=== PATIENT | female | born 1970 | race Caucasian/White ===

== ENCOUNTER → 2017-02-15 | Outpatient (CLI) | payer BC ==
--- NOTE | ~2017-02-15 | MY11 ---
[facility] A Service of [facility] RADIOLOGY TEXT RESULTS PATIENT: RAY MONTES DE OCA LOCATION: [facility] : 74 UNIT #: [id number] AGE: [address]: TABBY COWART MD SEX: F ORDER DR: [id number] [facility] [address] [place], [place] [address] [id number] O MR#: [id number] Acc #: [id number] NAME: RAY MONTES DE OCA : 1970 SEX: F STUDY DATE/TIME: 02/15/2017 14:00 UNIT: [facility] ROOM: STUDY DESCRIPTION: MY Mammogram Screening Dig Jarred Attending Physician: Tabby Cowart Referring Physician: Tabby Cowart Ordering Physician: Physician Non-Staff Primary Care Physician: Kendra Desir M.D. MEDICAL IMAGING REPORT This report is preliminary unless electronic signature is present EXAM Digital screening mammogram 02/15/2017 HISTORY 46-year-old woman no risk elevation. Annual screen. COMPARISON Outside mammograms date 08/23/2014 with followup diagnostic left breast imaging 09/16/2014. FINDINGS Digital imaging of each breast was completed utilizing a two-view examination of each breast in craniocaudal and mediolateral-oblique projections. Review and interpretation of digital mammograms include a second review in conjunction with FDA-approved CAD device. There is a normal parenchymal presentation bilaterally consistent with the patient's age. There are no breast masses imaged and no parenchymal asymmetry is visualized. There are no suspicious microcalcifications and I see no focal architectural disturbance. IMPRESSION Negative screening digital mammogram. One-year followup recommended. Patients over the age of 40 are entered into a reminder system with target due date for the next mammogram. A result letter will also be sent to the patient. BIRADS: 1 Negative Dictated by... Ez Crespo M.D. [facility] A Service of [facility] & [facility] RADIOLOGY TEXT RESULTS PATIENT: RAY MONTES DE OCA LOCATION: [facility] : 74 UNIT #: [id number] AGE: [address]: TABBY COWART MD SEX: F ORDER DR: THIS IS AN ELECTRONICALLY VERIFIED REPORT Ez Crespo M.D. at 02/17/2017 2:32 PM PATRICIA/giuliano TD: 02/17/2017 12:34 JOB #: [id number] MEDICAL IMAGING REPORT Page 1 of 1 COPY
== END | disposition home or self-care (01) ==
LOC: CWCC 13:51
DX: Z12.31 Encounter for screening mammogram for malignant neoplasm of breast (principal)
CPT/HCPCS: G0202

== ENCOUNTER → 2017-05-18 | Outpatient (CLI) | payer BC ==
--- NOTE | ~2017-05-18 | US85 ---
[facility] A Service of [facility] & [facility] RADIOLOGY TEXT RESULTS PATIENT: RAY MONTES DE OCA LOCATION: [facility] : 74 UNIT #: [id number] AGE: [address]: Jarod Dumas MD SEX: F ORDER DR: [id number] [facility] [address] [place], [place] [address] [id number] O MR#: [id number] Acc #: [id number] NAME: RAY MONTES DE OCA : 1970 SEX: F STUDY DATE/TIME: 05/18/2017 17:13 UNIT: [facility] ROOM: STUDY DESCRIPTION: [facility] Stdy Attending Physician: Jarod Dumas M.D. Referring Physician: Jarod Dumas M.D. Ordering Physician: Yamileth Dumas M.D. Primary Care Physician: Kendra Desir M.D. MEDICAL IMAGING REPORT This report is preliminary unless electronic signature is present EXAM Left lower extremity venous duplex 05/18/2017. HISTORY Left lower extremity pain for 3 weeks, increasing in the last 3 days. Evaluate for deep vein thrombosis. TECHNIQUE Venous ultrasound examination of the left lower extremity was performed using grayscale, spectral Doppler and color flow Doppler imaging. FINDINGS The examination is negative. There is no evidence of left lower extremity deep venous thrombus from the groin to the lower calf. Visualized greater saphenous vein is also patent. IMPRESSION Negative examination. No evidence of left lower extremity deep venous thrombosis. Dictated by... Den Salmeron M.D. THIS IS AN ELECTRONICALLY VERIFIED REPORT Den Salmeron M.D. at 05/19/2017 10:21 AM KRT/krupa TD: 05/19/2017 07:13 JOB #: [id number] MEDICAL IMAGING REPORT Page 1 of 1 COPY
== END | disposition home or self-care (01) ==
LOC: CGUS 11:08 → CNIV 11:08
DX: M79.661 Pain in right lower leg (principal)
CPT/HCPCS: 93971

== ENCOUNTER → 2017-05-25 | Outpatient (CLI) | payer BC ==
--- NOTE | ~2017-05-25 | MR103 ---
[facility] A Service of [facility] RADIOLOGY TEXT RESULTS PATIENT: RAY MONTES DE OCA LOCATION: [facility] : 74 UNIT #: [id number] AGE: [address]: Jarod Dumas MD SEX: F ORDER DR: [id number] [facility] [address] [place], [place] [address] [id number] O MR#: [id number] Acc #: [id number] NAME: RAY MONTES DE OCA : 1970 SEX: F STUDY DATE/TIME: 05/25/2017 6:55 UNIT: [facility] ROOM: STUDY DESCRIPTION: MR Knee Wo Contrast Lt Attending Physician: Jarod Dumas M.D. Referring Physician: Jarod Dumas M.D. Ordering Physician: Jarod Dumas M.D. Primary Care Physician: Kendra [facility] C[facility] REPORT This report is preliminary unless electronic signature is present. EXAM MRI of the left knee without contrast HISTORY 46-year-old female complains of feeling a pop and knee 1 week ago while walking. Pain started in the knee and now extending into calf. Increasing pain when straightening leg. FINDINGS Multiplanar multiecho imaging was performed of the left knee utilizing a high field magnet and dedicated protocol. Bone structure and alignment appears normal. No focal marrow edema. Joint fluid within normal limits. Medial and lateral menisci appear intact. Articular cartilage unremarkable except for mild chondromalacia patella. The cruciate and collateral ligaments appear normal. The extensor mechanism unremarkable. In particular, there are no findings to suggest a popliteal cyst or recently ruptured popliteal cyst within the knee or proximal lower leg. IMPRESSION Mild chondromalacia patella otherwise unremarkable MRI of the left knee. Dictated by... Fidel Qureshi M.D. THIS IS AN ELECTRONICALLY VERIFIED REPORT Fidel Qureshi M.D. at 05/25/2017 5:11 PM DANITA/jolanta TD: 05/25/2017 15:05 JOB #: [id number] [facility] A Service of [facility] RADIOLOGY TEXT RESULTS PATIENT: RAY MONTES DE OCA LOCATION: [facility] : 74 UNIT #: [id number] AGE: [address]: Jarod Dumas MD SEX: F ORDER DR: MRI CENTER REPORT Page 1 of 1 COPY
--- NOTE | ~2017-05-25 | MR113 ---
[facility] A Service of [facility] RADIOLOGY TEXT RESULTS PATIENT: RAY MONTES DE OCA [facility] 74 UNIT #: [id number] AGE: [address]: Jarod Dumas MD SEX: F ORDER DR: [id number] [place] [id number] [facility]. [place], [place] [address] [id number] O MR#: [id number] Acc #: [id number] NAME: RAY MONTES DE OCA : 1970 SEX: F STUDY DATE/TIME: 05/25/2017 6:19 UNIT: [facility] ROOM: STUDY DESCRIPTION: MR Lumbar Wo Contrast Attending Physician: Jarod Dumas M.D. Referring Physician: Jarod Dumas M.D. Ordering Physician: Jarod Dumas M.D. Primary Care Physician: Kendra Desir M.D. MRI CENTER REPORT This report is preliminary unless electronic signature is present. EXAM Lumbar spine MRI without contrast, 05/25/2017 PROCEDURE Routine lumbar spine MRI without contrast. COMPARISON None CLINICAL HISTORY 1-week history of pain radiating to right hip. FINDINGS Spine alignment is normal. Bone marrow signal is normal. The distal cord and conus are normal in position, but question tiny syrinx cavity in the distal cord. At L1-2 and L2-3, the disc canal and foramina are normal. At 3-4, there is a slight disc bulge but no canal or foraminal stenosis. At 4-5, there is some mild facet arthropathy and perhaps a slight disc bulge but no canal stenosis and there is mild left and borderline right foraminal stenosis. At 5-1, there is a small central disc protrusion but no canal stenosis or other nerve root impingement and mild left and borderline right foraminal narrowing. IMPRESSION Minimal degenerative change. There is mild left foraminal narrowing at 4-5 and 5-1. No acute-appearing abnormality at any level. [facility] A Service of [facility] RADIOLOGY TEXT RESULTS PATIENT: RAY MONTES DE OCA LOCATION: [facility] : 74 UNIT #: [id number] AGE: [address]: Jarod Dumas MD SEX: F ORDER DR: Dictated by... Jaron Baer M.D. THIS IS AN ELECTRONICALLY VERIFIED REPORT Jaron Baer M.D. at 05/27/2017 4:50 PM JEFF/scott TD: 05/25/2017 13:58 JOB #: [id number] MRI CENTER REPORT Page 1 of 1 COPY
== END | disposition home or self-care (01) ==
LOC: CMRI 05:50
DX: M79.662 Pain in left lower leg (principal); M25.562 Pain in left knee; M47.896 Other spondylosis, lumbar region; M99.83 Other biomechanical lesions of lumbar region; M22.42 Chondromalacia patellae, left knee
CPT/HCPCS: 72148; 73721